=== PATIENT | female | born 1945 | race Caucasian/White ===

== ENCOUNTER 2021-09-06 09:48 | Outpatient (RCR) | payer MEDICARE, OTHER, SELFPAY ==
--- NOTE | 2021-09-06 10:57 | PTOPEVAL ---
Thank you for referring Shell Marinelli to [facility].? The patient is scheduled to be seen for therapy? __3__x/week for 12 visits. Please review, sign, date and return this plan of care CHUCKIE. I agree with and certify that the following plan of care is medically necessary. Referring Physician Date Admitting Provider: Attending Provider: GAYLA ALCARAZ Referring Provider: *PT Outpatient Evaluation Start: 09/06/21 10:04 Freq: Status: Active Protocol: Document 09/06/21 10:04 JASPER (Rec: 09/06/21 10:57 JASPER [email or web address]) Therapy Assessment Status Assessment Status Assessment Status Evaluation Evaluation Information Problem Diagnosis right leg weakness Onset 01/24/21 Subjective Information Pt. reports she fx the femur Query Text:As Reported By Patient/ back in January. She states Family that she underwent surgery 1 week later to have the femur repaired. She reports that she was in rehab for 10 days. She had 1 month of HH therapy upon returning home. She reports that the right leg seems to be at a stand still and not getting stronger. Pt. reports that she cannot stand for very long before having to sit. She reports that she also notices stiffness into the right leg. She reports that her goal for therapy is to be able to walk with less pain and improved endurance. Prior Level of Function Comments Additional Prior Level of Function Pt. reports she is using a Comments cane for most activity. She reports that she has returned to driving. Pain Assessment Timing of Pain Assessment Timing of Pain Assessment Pre-Treatment Pain Scale Pain Scale Used Numeric (1 - 10) Self Report Pain Assessment Right Leg(s) Reported Pain Level 5 Pain Description Aching Pain Score Pain Score 5: Self Report Interventions Used Interventions Used By Clinicians Activity or ADL's,Exercise Lower Extremity Muscle Strength Testing General Lower Extremity Strength Gross Lower Extremity Strength -right hip flexion 4-/5 -left hip flexion 4+/5 -right hip abduction 3+/5 -left hip abduction 4/5 -right knee flexion 4+/5
--- NOTE | 2021-09-29 16:01 | PTOPEVAL ---
Thank you for referring Shell Marinelli to [facility]. Please review, sign, date and return this plan of care CHUCKIE. I agree with and certify that the following plan of care is medically necessary. Referring Physician Date Admitting Provider: Attending Provider: GAYLA ALCARAZ Referring Provider: *PT Outpatient Evaluation Start: 09/06/21 10:04 Freq: Status: Active Protocol: Document 09/29/21 14:43 JASPER (Rec: 09/29/21 16:00 JASPER [email or web address]) Therapy Assessment Status Assessment Status Assessment Status Progress Evaluation Information Problem Subjective Information Pt. reports that she is Query Text:As Reported By Patient/ stronger. She is feeling Family increased right knee pain today in standing and request to avoid activity that increases pain. Pain Assessment Timing of Pain Assessment Timing of Pain Assessment Pre-Treatment Pain Scale Pain Scale Used Numeric (1 - 10) Self Report Pain Assessment Right Leg(s) Reported Pain Level 5 Pain Score Pain Score 5: Self Report Interventions Used Interventions Used By Clinicians Exercise Lower Extremity Muscle Strength Testing General Lower Extremity Strength Gross Lower Extremity Strength right hip flexion 4/5 -left hip flexion 4+/5 -right hip abduction 4-/5 -left hip abduciton 4+/5 -right knee flexion 5/5 -left knee flexion 5/5 -right knee extension 4+/5 -left knee extension 5/5 Balance Assessment Time Up Go (TUG) Timed Up and Go Test (TUG) (Seconds) 11 Assistive Devices None General Exercise General Exercises Exercise Description -SLR x 30 bilateral Query Text:Record Sets, Reps, -clamshells x 30 bilateral Resistance, and Position -passive HS stretch x 2 minutes bilateral -passive piriformis stretch x 2 minutes bilateral -bridging x 20 reps -AAROM knee flexion on right to increase ROM -right knee patellar mobilization x 3 mintues -sidelying hip abduction x 25 reps bilateral PT Clinical Summary Clinical Summary Protocol: PTEVCODE PT Clinical Summary Pt. continues to progress regarding strength and mobility. Regressed treatment
== END 2021-10-06 17:09 | disposition home or self-care (01) ==
LOC: CHSPT 09:48
PROVIDERS: PCP Internal Medicine
DX: C79.51 Secondary malignant neoplasm of bone (principal); C50.811 Malignant neoplasm of overlapping sites of right female breast; Z17.0 Estrogen receptor positive status [ER+]; R29.898 Other symptoms and signs involving the musculoskeletal system
CPT/HCPCS: 97110; 97112; 97140; 97161; 97530

== ENCOUNTER 2024-02-07 14:43 | Emergency (ER) | payer MEDICARE, OTHER, SELFPAY ==
[2024-02-07 14:48] VITALS: BP 144/96; PULSE 78; RESP 14; TEMP 36.8; O2SAT 96
--- NOTE | 2024-02-07 14:59 | ED.HEATRA ---
HPI - Head Injury General Chief complaint: Head Injury Stated complaint: FALL, HEAD INJURY Source: patient and family Mode of arrival: ambulatory Limitations: no limitations History of Present Illness HPI Narrative: this is a 78-year-old female that has a history of breast cancer and being treated at [facility] had a near fall, where she fell forward and struck the right side of her face on object causing a mild hematoma otherwise no loss of consciousness neural no neurological deficits no other injuries noted. Patient denies being on any blood thinners no bleeding no chest pain or shortness of breath. MD Complaint: head injury Onset (ago): minute(s) Mechanism of Injury: fall Place: home Location of injury: face Severity: mild Review of Systems Review of Systems: All systems reviewed & are unremarkable except as noted in HPI and below PMFSH Past Medical History Medical History Facial nerve palsy History of breast cancer Exam Const: General: healthy appearing, no acute distress and alert Nutritional Appearance: well nourished Orientation/consciousness: patient oriented x3 Limitations: no limitations HENMT: Head: normal to inspection Ears: external ears normal Face/Nose/Sinus: Normal external nose present Face and sinus: normal facial exam Eyes: Conjunctivae: conjunctivae normal Pupils: Equal, round and reactive pupils present EOM: EOMs intact bilaterally Direct Ophthalmoscopy: no photophobia Neck: Neck: normal visual inspection, no lymphadenopathy and no meningeal signs Resp: Effort & Inspection: normal respiratory effort Auscultation: clear to auscultation bilaterally Cardio: Rate: regular rate Rhythm: regular rhythm GI: GI Palp: Yes Soft to palpation Auscultation: normal bowel sounds Skin: Wounds: wounds noted Other: small hematoma to the right side of her face upper face mild no bleeding no facial tenderness with palpation. Neuro: General: patient oriented x3, moves all extremities, no meningeal signs and no focal motor deficits Cranial nerves: Yes CN's II-XII intact bilaterally and Yes Nystagmus not present Speech: normal speech Extrem: General: normal to inspection and no clubbing, cyanosis or edema Psych: Mental Status: mental status grossly normal Course Course Emergency Course: Patient exam within normal limits no neurological deficits does have a small hematoma to the right upper face area. Vital Signs Vital signs: Vital Signs Temperature 36.8 C 02/07/24 14:48 Pulse Rate 78 02/07/24 14:48 Respiratory Rate 14 02/07/24 14:48 Blood Pressure 144/96 H 02/07/24 14:48 Pulse Oximetry 96 02/07/24 14:48 Oxygen Delivery Room Air 02/07/24 14:48 Temperature 36.8 C 02/07/24 14:48 Pulse Rate 78 02/07/24 14:48 Respiratory Rate 14 02/07/24 14:48 Blood Pressure 144/96 H 02/07/24 14:48 Pulse Oximetry 96 02/07/24 14:48 Oxygen Delivery Room Air 02/07/24 14:48 Critical Care Time Critical Care Time Critical Care Time: No Discharge Plan Discharge Clinical Impression: Hematoma Patient Disposition: Home, Self-Care Condition: Stable Instructions: Antibiotic Form, Facial Contusion (ED) Additional Instructions: advised to use ice to affected area can use Tylenol as needed and follow up with primary if symptoms persist or worsen. Follow-up/Referrals: UNKNOWN,DOCTOR [Primary Care Provider] - Time of Disposition: 15:03
== END 2024-02-07 15:12 | disposition home or self-care (01) ==
LOC: CHSED 15:12
PROVIDERS: Emergency Provider Emergency Medicine; PCP Internal Medicine
DX: S00.83XA Contusion of other part of head, initial encounter (principal); C50.919 Malignant neoplasm of unspecified site of unspecified female breast; W18.39XA Other fall on same level, initial encounter
CPT/HCPCS: 99283

== ENCOUNTER 2024-03-04 15:55 | Outpatient (CLI) | payer MEDICARE, OTHER, SELFPAY ==
--- NOTE | ~2024-03-04 | XR_ITS ---
XR hip RT min 2V Ordering provider: Karissa Browning Ma History: . RTLEG PAIN,MALIGNANT NEOPLASM BONE/BREAST CA,RAD/SURG 2020 . Comparison: None. FINDINGS: BONES: No acute fracture or dislocation. HIP JOINT SPACES: Right total hip arthroplasty. SACROILIAC JOINT SPACES/LUMBAR SPINE: The sacroiliac joint spaces are normal. Mild degenerative garcia es of the visualized lower lumbar spine. PUBIC SYMPHYSIS: Pubic symphysitis. SOFT TISSUES: Normal. IMPRESSION: No acute osseous abnormality pelvis. Right hip arthroplasty Reviewed, dictated and finalized at location A.
--- NOTE | ~2024-03-04 | XR_ITS ---
XR femur RT min 2V Ordering provider: Karissa Browning Ma History: . RTLEG PAIN,MALIGNANT NEOPLASM BONE/BREAST CA,RAD/SURG 2020 . Comparison: None. FINDINGS: BONES: No acute fracture or dislocation. Bone formation seen medially. JOINT SPACES: Right hip arthroplasty with fixation of the upper femur. Right knee total arthroplasty. Pubic symphysitis. SOFT TISSUES: Normal. IMPRESSION: Right hip arthroplasty. Bone formation seen medially in the upper abdomen. Right total knee arthroplasty.. Reviewed, dictated and finalized at location A.
== END 2024-03-04 15:56 | disposition home or self-care (01) ==
LOC: CHSIMG 16:01
PROVIDERS: PCP Internal Medicine
DX: C50.811 Malignant neoplasm of overlapping sites of right female breast (principal); Z17.0 Estrogen receptor positive status [ER+]; M79.604 Pain in right leg; Z96.641 Presence of right artificial hip joint; Z96.651 Presence of right artificial knee joint
CPT/HCPCS: 73502; 73552

== ENCOUNTER 2025-03-11 12:00 | Outpatient (CLI) | payer MEDICARE, SELFPAY ==
[2025-03-11 12:47] LABS: Alanine Aminotransferase 21 U/L (6-35); Albumin Level 4.8 g/dL (3.5-5.1); Alkaline Phosphatase 49 U/L (38-126); Anion Gap 11 mmol/L (4-12); Aspartate Amino Transferase 25 U/L (14-36); Bilirubin,Total 0.4 mg/dL (0.2-1.3); Blood Urea Nitrogen 24 mg/dL (7-17); Calcium 10.2 mg/dL (8.4-10.2); Carbon Dioxide 29 mmol/L (22-30); Chloride 105 mmol/L (98-107); Cholesterol 193 mg/dL (0-200); Estimated Glomerular Filt Rate > 60; Glucose 111 mg/dL (65-110); HDL Direct 47 mg/dL; Osmolality Calculated 305 mOsm/kg (285-295); Potassium 5.1 mmol/L (3.4-5.0); Sodium 145 mmol/L (137-145); Total Protein 7.4 g/dL (6.3-8.2); Triglycerides 274 mg/dL (<150)
--- OUTSIDE RECORDS SUMMARY | 2025-03-11 13:27 | XMS_ITS | Encounter Summary ---
Author Organization [facility] Address [facility] [facility] [place] [address] Care Team Providers Care Recycling Director Name Role Phone None, Provider Primary Care Provider Unavaila ble Encounter Details Date Type Department Care Team (Late st Contact Info) Description 06/15/2020 Prep for Procedure [facility] [address] [place] [address] Jasvir Antonio MD [address] [place] [address] Social History Tobacco Use Types Packs/Day Years Used Date Smoking Tobacco: Never Smokeless Tobacco: Never Alcohol Use Standard Drinks/Week Comments Never 0 (1 standard drink = 0.6 oz pur e alcohol) AUDIT-C Answer Date Recorded Q1: How often do you have a drink containing alc ohol? Never 06/15/2020 Average Number of Drinks Not on file 021 Frequency of Binge Drinking Not on file 06/2020 Comments No Sex and Gender Information Value Date Recorded Sex Assigned at Not on file Legal Sex Female 4:49 PM CDT Gender Identity Not on file Sexual Orientation Not on file documented as of this encounter Functional Status documented as of this encounter Plan of Treatment Not on file documented as of this encounter Results * PRE-SURGICAL/PRE-PROCEDURE CORONAVIRUS (COVID 19) (07/16/2020 10:07 AM BOILERMAKER HELPER) CORONAVIRUS SARS COV 2 PCR (RESP) NOT DETECTED NOT DETECTED 07/18/2020 8:05 AM BOILERMAKER HELPER [facility] Comment: A Not Detected (negative) test result for this test means that SARS- CoV-2 RNA was not present in the specimen above the limit of detection. A negative result does not rule out the possibility of COVID-19 and should not be used as the sole basis for treatment or patient management decisions. If COVID-19 is still suspected, based on exposure history together with other clinical findings, re-testing should be considered in consultation with public health authorities. Laboratory test results should always be considered in the context of clinical observations and epidemiological data in making a final diagnosis and patient management decisions. Please review the Fact Sheets and FDA authorized labeling available for health care providers and patients using the following websites: https://www.[employer].Saberr/home/Covid-19/HCP/QuestIVD/fact- sheet.html https://www.[employer].Saberr/home/Covid-19/Patients/ QuestIVD/fact-sheet.html This test has been authorized by the FDA under an Emergency Use Authorization (EUA) for use by authorized laboratories. Due to the current public health emergency, [facility] is receiving a high volume of samples from a wide variety of swabs and media for COVID-19 testing. In order to serve patients during this public health crisis, samples from appropriate clinical sources are being tested. Negative test results derived from specimens received in non-commercially manufactured viral collection and transport media, or in media and sample collection kits not yet authorized by FDA for COVID-19 testing should be cautiously evaluated and the patient potentially subjected to extra precautions such as additional clinical monitoring, including collection of an additional specimen. Methodology: Nucleic Acid Amplification Test (NAAT) includes RT-PCR or TMA Additional information about COVID-19 can be found at the [facility] website: www.DoTheGlobe.Saberr/Covid19. Test performed at [facility] [address] [place] [address] Director: LUPIS DERAS DO,MPH FIRST TEST NO 07/16/2020 10:05 AM [facility] EMPLOYED IN HEALTHCARE NO 07/16/2020 10:05 AM [facility] SYMPTOMATIC DEFINED BY CDC NO 07/16/2020 10:05 AM [facility] DATE OF SYMPTOM ONSET UNKNOWN 07/16/2020 10:22 AM [facility] HOSPITALIZATION STATUS NO 07/16/2020 10:05 AM [facility] PATIENT IN ICU NO 07/16/2020 10:05 AM [facility] NO 07/16/2020 10:05 AM BOILERMAKER HELPER [facility] UNKNOWN 07/16/2020 10:22 AM [facility] PATIENT'S RACE WHITE OR 07/16/2020 10:05 AM [facility] ETHNICITY NONHISPANIC 07/16/2020 10:05 AM [facility] SOURCE (QST) NASOPHARYNGEAL SWAB 07/16/2020 10:05 AM [facility] NASOPHARYNGEAL SWAB / Unknown 07/16/2020 10:07 AM [facility] Jasvir Antonio MD MICROBIOLOGY - GENERAL ORDERAB LES Final Result Performing Organization Address City/State/[facility] Co de Phone Number [facility] [address] [place] [address], [facility] [id number] [place] [address], * PRE-SURGICAL/PRE-PROCEDURE CORONAVIRUS (COVID 19) (06/18/2020 10:27 AM BOILERMAKER HELPER) CORONAVIRUS SARS COV 2 PCR (RESP) NOT DETECTED NOT DETECTED 06/19/2020 7:40 PM BOILERMAKER HELPER [facility] Comment: A Not Detected (negative) test result for this test means that SARS- CoV-2 RNA was not present in the specimen above the limit of detection. A negative result does not rule out the possibility of COVID-19 and should not be used as the sole basis for treatment or patient management decisions. If COVID-19 is still suspected, based on exposure history together with other clinical findings, re-testing should be considered in consultation with public health authorities. Laboratory test results should always be considered in the context of clinical observations and epidemiological data in making a final diagnosis and patient management decisions. Please review the Fact Sheets and FDA authorized labeling available for health care providers and patients using the following websites: https://www.[employer].Saberr/home/Covid-19/HCP/NAAT/fact-sheet2 https://www.[employer].Saberr/home/Covid-19/Patients/NAAT/ fact-sheet2 This test has been authorized by the FDA under an Emergency Use Authorization (EUA) for use by authorized laboratories. Due to the current public health emergency, [facility] is receiving a high volume of samples from a wide variety of swabs and media for COVID-19 testing. In order to serve patients during this public health crisis, samples from appropriate clinical sources are being tested. Negative test results derived from specimens received in non-commercially manufactured viral collection and transport media, or in media and sample collection kits not yet authorized by FDA for COVID-19 testing should be cautiously evaluated and the patient potentially subjected to extra precautions such as additional clinical monitoring, including collection of an additional specimen. Methodology: Nucleic Acid Amplification Test (NAAT) includes RT-PCR or TMA Additional information about COVID-19 can be found at the [facility] website: www.DoTheGlobe.Saberr/Covid19. Test performed at [facility] [id number] [place] [phone] Director: LUPIS DERAS DO,MPH FIRST TEST UNKNOWN 06/18/2020 10:22 AM [facility] EMPLOYED IN HEALTHCARE NO 06/18/2020 10:22 AM [facility] SYMPTOMATIC DEFINED BY CDC NO 06/18/2020 10:22 AM [facility] DATE OF SYMPTOM ONSET UNKNOWN 06/18/2020 10:56 AM [facility] HOSPITALIZATION STATUS NO 06/18/2020 10:22 AM [facility] PATIENT IN ICU NO 06/18/2020 10:22 AM [facility] RESIDENT OF [facility] NO 06/18/2020 10:22 AM [facility] UNKNOWN 06/18/2020 10:56 AM BOILERMAKER HELPER [facility] PATIENT'S RACE WHITE OR 06/18/2020 10:22 AM BOILERMAKER HELPER [facility] ETHNICITY NONHISPANIC 06/18/2020 10:22 AM BOILERMAKER HELPER [facility] SOURCE (QST) NASOPHARYNGEAL SWAB 06/18/2020 10:22 AM BOILERMAKER HELPER [facility] NASOPHARYNGEAL SWAB / Unknown 06/18/2020 10:27 AM BOILERMAKER HELPER us Jasvir Antonio MD MICROBIOLOGY - GENERAL ORDERAB LES Final Result [facility] [address] [place] [address], [facility] [id number] [place] [address], documented in this encounter Visit Diagnoses Diagnosis Preop testing- Primary Preoperative examination, unspecified documented in this encounter Additional Health Concerns Infection Onset Date Last Indicated Resolved Time COVID-19 Rule Out 06/18/2020 06/18/2020 06/19/2020 7:41 PM BOILERMAKER HELPER COVID-19 Rule Out 07/16/2020 07/16/2020 07/18/2020 8:06 AM BOILERMAKER HELPER documented as of this encounter Care Teams Recycling Director Relationship Specialty Start Date End Date None, Provider, PCP - General 06/15/20 documented as of this encounter
--- OUTSIDE RECORDS SUMMARY | 2025-03-11 13:27 | XMS_ITS | Clinical Summary ---
Author Organization [facility] Address [address] [place] [address] Care Team Providers Care Poultry Trimmer Name Role Phone None, Provider MD Primary Care Provider Unavaila ble Allergies Active Allergy Reactions Criticality Noted Date Comments Cephalosporins Anaphylaxis High 06/15/2020 Nsaids GI Upset 07/18/2016 Penicillins Anaphylaxis High 06/15/2020 Medications atenolol 25 MG tablet Take 25 mg by mouth daily. Active escitalopram 20 MG tablet Take 20 mg by mouth daily. Active losartan-hydroCH LOROthiazide 100-25 MG tablet Take 0.5 tablets by mouth daily. Active buPROPion XL 150 MG 24 hr tablet Take 150 mg by mouth daily. Active LORazepam 1 MG tablet Take 1 mg by mouth nightly. Active letrozole 2.5 MG tablet Take 2.5 mg by mouth daily. Active Multiple Vitamins-Mineral s (ICAPS AREDS 2 OR) Take 1 tablet by mouth 2 (two) times a day. Active acetaminophen [address] 325 mg rectally every 4 (four) hours as needed for Fever. Active acetaminophen 325 MG tablet Take 650 mg by mouth every 6 (six) hours as needed for Pain. Active glucosamine-reg droitin 500-400 MG Cap Take 1 capsule by mouth daily. Active Probiotic Product (PROBIOTIC ADVANCED) Cap Take 1 capsule by mouth daily. Active calcium-magnesiu m-zinc 333-133-5 MG Tab Take 1 tablet by mouth daily. Active fish oil 1000 MG Cap capsule Take 1,000 mg by mouth daily. Active vitamin D3, cholecalciferol, 75 MCG (3000 UT) Tab tablet Take 1,000 Units by mouth daily. Active aspirin EC (ASPIRIN EC) 81 MG tablet Take 81 mg by mouth daily. Active atorvastatin 10 MG tablet Take 10 mg by mouth nightly at bedtime. Active Active Problems No known active problems Social History Tobacco Use Types Packs/Day Years [...] on file Sexual Orientation Not on file Last Filed Vital Signs Vital Sign Reading Time Taken Comments Blood Pressure 128/84 07/19/2020 8:01 AM MACHINERY MOVER Pulse 74 07/19/2020 8:01 AM MACHINERY MOVER Temperature 36.8 C (98.2 F) 07/19/2020 6:20 AM MACHINERY MOVER Respiratory Rate 16 07/19/2020 8:01 AM MACHINERY MOVER Oxygen Saturation 98% 07/19/2020 8:01 AM MACHINERY MOVER Inhaled Oxygen Concentration - - Weight 90.7 kg (200 lb) 07/09/2020 1:40 PM MACHINERY MOVER Height 157.5 cm (5' 2) 07/09/2020 1:40 PM MACHINERY MOVER Body Mass Index 36.58 07/09/2020 1:40 PM MACHINERY MOVER Plan of Treatment Health Maintenance Due Date Last Done Comments Hepatitis C 1963 DTaP, Tdap and Td Vaccines ( 1 - Tdap) 1965 Pneumococcal Vaccine: 50+ Ye ars (1 of 1 - PCV) 1996 Zoster Vaccines (1 of 2) 1996 Annual Medicare Wellness Visit 2011 Dexa Scan (General) 2011 RSV Immunization or 60+ Years (1 - 1-dose 75+ series) 2021 COVID-19 Vaccine ( - 2024-2 6 season) 2025 Influenza Adult (#1) 2025 Hepatitis A Vaccines Aged Out No long er eligible based on patient's age to complete this topic Meningococcal B Vaccine Aged Out No l onger eligible based on patient's age to complete this topic Meningococcal Vaccine Aged Out No muriel paco eligible based on patient's age to complete this topic RSV Immunizations Under 20 Months Aged Out No longer eligible based on patient's age to complete this topic Medical Devices Implanted Type [employer] Device Identifier Shelf Expiration Date Model / Serial / Lot Intraocular Lens (1-Piece Preloaded) Implanted:Qty: 1 on 07/19/2020 by Jasvir Antonio MD at [facility] Lens Right: Eye [employer] 01/19/2023 [id number] / [id number] / Intraocular Lens Implanted:Qty: 1 on 06/21/2020 by Jasvir Antonio MD at [facility] Left: Eye 06/13/2022 [id number] / [id number] / Insurance [place] [employer] [facility] Care Teams Poultry Trimmer Relationship Specialty Start Date End Date None, Provider, PCP - General 06/15/20
--- OUTSIDE RECORDS SUMMARY | 2025-03-11 13:27 | XMS_ITS | Clinical Summary ---
Author Organization [facility] [place] Address [address] [place] [address] Care Team Providers Care Master [place] Name Role Phone Mayo Mancilla MD Unavailable [phone] Fernandez Cleveland MD Primary Care Provider [phone] Source Comments [facility] [place],non-owned Affiliates and Associated Physician Practices is amultiple site organization consisting of ambulatory clinics and hospital sitesin [place], [place], [place] and [place]. This disclosure is being madepursuant to the Care Everywhere program and may not contain all information available regarding this patient. Last updated 18.[facility] [place] Allergies Active Allergy Reactions Criticality Noted Date Comments Adhesive Sensitivity Rash Medium 01/01/2018 Certain adhesives Cefazolin Rash High 02/26/2018 Possible rash and adverse reaction, most likely different agent Cephalosporins Anaphylaxis High 06/15/2020 Chlorhexidine Rash Medium 01/01/2018 Glycopyrrolate Anaphylaxis High 03/18/2018 Possible allergy after surgery, unsure of which agent Nsaids GI Discomfort 07/18/2016 Penicillins Anaphylaxis High 03/26/2018 Medications * Be aware that medications may not be up to date on this document. Alwaysverify current medications with the patient. escitalopram (LEXAPRO) 20 MG tablet Take 20 mg by mouth once daily Active atenolol (TENORMIN) 25 MG tablet Take 25 mg by mouth once daily Active atorvastatin (LIPITOR) 10 MG tablet Take 10 mg by mouth at bedtime Active buPROPion XL 24hr (WELLBUTRIN-XL) 150 MG tablet Take 150 mg by mouth once daily Active Multiple Vitamins-Minerals (ICAPS AREDS 2 PO) Take by mouth 2 times daily Active senna-docusate (SENOKOT-S) 8.6-50 MG tablet Take 1 Tab by mouth 2 times daily 017 Active magnesium hydroxide (MILK OF MAGNESIA) 400 MG/5ML suspension Take 30 mL by mouth as needed for Constipation 017 Active ASPIRIN 81 PO TAKE 1 TABLET BY MOUTH EVERYDAY AT BEDTIME 021 Active anastrozole (ARIMIDEX) 1 MG tablet Take 1 mg by mouth once daily 022 Active meloxicam (MOBIC) 15 MG tablet Take 1 (one) tablet by mouth once daily 30 tablet 5 022 Active carvedilol (Coreg) 6.25 MG tablet Take 1 (one) tablet by mouth 2 times daily 60 tablet 11 022 Active LORazepam (Ativan) 1 MG tablet TAKE HALF TO 1 TABLET BY MOUTH AT BEDTIME 022 Active prochlorperazine (Compazine) 10 MG tablet Take 1 (one) tablet by mouth every 8 hours as needed 023 Active Pertuzumab (PERJETA IV) Active denosumab (Xgeva) 120 MG/1.7ML injection Inject 1.7 mL subcutaneously once Active gabapentin (Neurontin) 100 MG capsule 024 Active losartan - hydroCHLOROthiazide (Hyzaar) 50-12.5 MG tablet TAKE 1/2 TABLET BY MOUTH EVERY MORNING 024 Active venlafaxine XR 24hr (Effexor XR) 37.5 MG capsule Take 1 (one) capsule by mouth once daily 024 Active Active Problems Problem Noted Date Diagnosed Date Primary osteoarthritis of left knee 11/21/2021 Secondary malignant neoplasm of bone 02/03/2021 Osteopenia of multiple sites 07/27/2020 Status post total right knee replacement 017 Social History Tobacco Use Types Packs/Day Years Used Date Smoking Tobacco: Never Alcohol Use Standard Drinks/Week Comments No 0 (1 standard drink = 0.6 oz pur e alcohol) PHQ-2 Answer Date Recorded Patient Health Questionnaire-2 Score 5 03/30/2023 Comments No Sex and Gender Information Value Date Recorded Sex Assigned at Not on file Legal Sex Female 2:44 PM [employer] Gender Identity Not on file Sexual Orientation Not on file Last Filed Vital Signs Vital Sign Reading Time Taken Comments Blood Pressure 116/53 08/12/2016 8:17 AM CDT Pulse 92 08/12/2016 8:17 AM CDT Temperature 36.8 C (98.2 F) 08/12/2016 8:17 AM CDT Respiratory Rate 18 08/12/2016 8:17 AM CDT Oxygen Saturation 97% 08/12/2016 8:17 AM CDT Inhaled Oxygen Concentration - - Weight 93 kg (205 lb) 08/09/2016 6:15 AM CDT Height 157.5 cm (5' 2) 08/09/2016 6:15 AM CDT Body Mass Index 37.49 08/09/2016 6:15 AM CDT Plan of Treatment Health Maintenance Due Date Last Done Comments MEDICARE AWV 12 MONTHS 1945 COVID-19 VACCINE (#1) 1951 HEPATITIS C SCREENING 04/18/1964 DTAP/TDAP/TD VACCINES (1 - Tdap) 1965 PNEUMOCOCCAL VACCINE 50+ (1 of 1 - PCV) 1996 ZOSTER VACCINE (1 of 2) 1996 Respiratory Syncytial Virus (RSV) Vaccine Pt: or over 60 yrs (1 - 1-dose 75+ series) 2021 DEPRESSION SCREENING 05/14/2024 INFLUENZA VACCINE (#1) 2025 BONE DENSITY TESTING Completed 07/12/2020, 07/15/2018 HEPATITIS B VACCINE Aged Out No longe r eligible based on patient's age to complete this topic HIB VACCINE Aged Out No longer eligi ble based on patient's age to complete this topic HPV VACCINE Aged Out No longer eligi ble based on patient's age to complete this topic MENINGOCOCCAL (Group B) VACCINE SHARED DECISION-MAKING Aged Out No longer eligible based on patient's age to complete this topic MENINGOCOCCAL GROUPS A/C/Y/W VACCINE Aged Out No longer eligible b ased on patient's age to complete this topic Medical Devices Implanted Type Area Territory Sales Consultant Device Identifier Shelf Expiration Date Model / Serial / Lot Nathan Bone Bly-G Hv 40/20 Implanted:Qty: 1 on 08/09/2016 by Mayo Mancilla MD at [facility] Right: Knee [employer] 11/10/2017 [id number] / / [id number] Cmpnt Ptlr 28mm 1 Pg Wire Ascnt Arcm Kn Implanted:Qty: 1 on 08/09/2016 by Mayo Mancilla MD at [facility] Right: Knee [employer] 07/19/2021 [id number] / / [id number] Cmpnt Fem Kn Rt Cr Cmnt Prm Vngrd Intlk Implanted:Qty: 1 on 08/09/2016 by Mayo Mancilla MD at [facility] Right: Knee [employer] 07/10/2026 [id number] / / [id number] Tray Tib 67mm Kn Cocr I Beam Implanted:Qty: 1 on 08/09/2016 by Mayo Mancilla MD at [facility] Right: Knee [employer] 04/24/2026 [id number] / / [id number] Brng [id number] Vngrd Arcm Kn Ant Stab Implanted:Qty: 1 on 08/09/2016 by Mayo Mancilla MD at [facility] Right: Knee [employer] 06/10/2021 [id number] / / [id number] Insurance MEDICARE AET Advance Directives * Full Code (Latest Code Status on File) Date Activated Date Inactivated Comments 08/09/2016 11:12 AM 08/12/2016 12:30 PM Care Teams Master [place] Relationship Specialty Start Date End Date Fernandez Cleveland MD [address] [place] [address] PCP - General Internal Medicine 07/18/16 [place] [id number] [address] Orthopedic Surgery 07/11/16
== END 2025-03-11 12:01 | disposition home or self-care (01) ==
PROVIDERS: PCP Internal Medicine; Visit Provider Internal Medicine
DX: I10 Essential (primary) hypertension (principal); E78.5 Hyperlipidemia, unspecified
CPT/HCPCS: 36415; 80053; 80061